=== PATIENT | male | born 1955 | race Caucasian/White ===

== ENCOUNTER → 2019-05-23 | Outpatient (CLI) | payer OTHER | LOC: COL.RAD 12:52 | DX: R80.9 Proteinuria, unspecified (principal) ==

== ENCOUNTER 2019-06-01 18:56 | Emergency (ER) | payer OTHER ==
[~2019-06-01] VITALS: Ht 182.9 cm; Wt 90.9 kg
[2019-06-01 19:05] VITALS: TEMP 98.7
[2019-06-01] MEDS ORDERED: SUDAFED 12 HOU120 MG PO (19:17)
[2019-06-01] MEDS ORDERED: CEPHALEXIN500 M1 PO (20:36)
[2019-06-01 20:42] VITALS: BP 131/83; PULSE 81
== END 2019-06-01 20:44 | disposition home or self-care (01) ==
LOC: COL.ER 18:56
DX: S52.001A Unspecified fracture of upper end of right ulna, initial encounter for closed fracture (principal); Z88.1 Allergy status to other antibiotic agents; W11.XXXA Fall on and from ladder, initial encounter; Y92.009 Unspecified place in unspecified non-institutional (private) residence as the place of occurrence of the external cause

== ENCOUNTER 2022-02-25 03:48 | Emergency (ER) | payer OTHER ==
[~2022-02-25] VITALS: Ht 182.9 cm; Wt 93.2 kg
[~2022-02-25 03:48] MED LIST: CEPHALEXIN500 M1 PO; SUDAFED 12 HOU120 MG PO
[2022-02-25 03:52] VITALS: TEMP 97.7
[2022-02-25 04:20] LABS: BASO # 0.1 K/mm3 (0.0-0.2); BASO % 0.5 % (0.0-2.0); EOS # 0.6 K/mm3 (0.0-0.7); EOS % 5.2 % (0.0-4.0); GRAN # 7.9 K/mm3 (1.4-6.5); GRAN % 70.3 % (42.2-75.2); HEMATOCRIT 42.6 % (42.0-52.0); HEMOGLOBIN 14.7 g/dl (13.5-18.0); LYMPH % 17.4 % (20.0-51.0); MEAN CELL VOLUME 90 fl (80.0-100.0); MEAN CORPUSCULAR HEMOGLOBIN 31 pg (27-31); MEAN CORPUSCULAR HGB CONC 35 g/dl (33.0-37.0); MEAN PLATELET VOLUME 10.6 fl (7.4-10.4); MONO # 0.7 K/mm3 (0.1-0.6); MONO % 6.2 % (1.7-9.3); PLATELET COUNT 233 K/mm3 (130-400); RED BLOOD COUNT 4.76 M/mm3 (4.20-5.60); REDCELL DISTRIBUTION WIDTH-CV 12.6 % (11.5-14.5)
[2022-02-25 04:39] LABS: ALANINE AMINOTRANSFERASE 46 U/L (0-55); ALBUMIN 2.9 gm/dL (3.4-4.8); ALKALINE PHOSPHATASE 32 U/L (40-150); ANION GAP 14 mmol/L (7-16); AST,SGOT 48 U/L (5-34); BILIRUBIN,TOTAL 0.7 mg/dL (0.2-1.2); BLOOD UREA NITROGEN 25 mg/dL (8-26); CALCIUM 9.2 mg/dL (8.4-10.2); CARBON DIOXIDE 23 mmol/L (23-31); CHLORIDE 105 mmol/L (98-107); CREATINE KINASE 137 U/L (30-200); CREATININE, serum 1.17 mg/dL (0.72-1.25); GLUCOSE 130 mg/dL (70-99); POTASSIUM 4.4 mmol/L (3.5-4.5); SODIUM 142 mmol/L (136-145)
[2022-02-25 04:47] LABS: TROPONIN-I < 0.010 ng/mL (0.00-0.033)
[2022-02-25] MEDS ORDERED: MEDROL 4MG DOSPA4 MG PO (06:13)
[2022-02-25] MEDS ORDERED: NORCO 325 MG-51 TAB PO (06:13)
[2022-02-25] MEDS ORDERED: FLEXERIL 1010 MG/TAB PO (06:13)
[2022-02-25 07:04] VITALS: BP 124/82; PULSE 66
== END 2022-02-25 07:04 | disposition home or self-care (01) ==
LOC: COL.ER 03:48
PROVIDERS: Emergency Medicine
DX: S29.012A Strain of muscle and tendon of back wall of thorax, initial encounter (principal); W18.39XA Other fall on same level, initial encounter; Y92.096 Garden or yard of other non-institutional residence as the place of occurrence of the external cause; Y92.59 Other trade areas as the place of occurrence of the external cause; Y99.0 Civilian activity done for income or pay
CPT/HCPCS: J1885; J2060; J7030

== ENCOUNTER 2022-10-10 05:31 | Outpatient (CLI) | payer MEDICARE, OTHER ==
[~2022-10-10] VITALS: Ht 182.9 cm; Wt 93.3 kg
[2022-10-10] VITALS (25 sets, daily range): BP systolic 107–142; BP diastolic 67–94; PULSE 75–88; TEMP 98.7
[~2022-10-10 05:31] MED LIST changes: +FLEXERIL 1010 MG/TAB PO; +MEDROL 4MG DOSPA4 MG PO; +NORCO 325 MG-51 TAB PO
[2022-10-10 07:13] LABS: BASO # 0.1 K/mm3 (0.0-0.2); BASO % 0.8 % (0.0-2.0); EOS # 0.4 K/mm3 (0.0-0.7); EOS % 5.9 % (0.0-4.0); GRAN # 3.4 K/mm3 (1.4-6.5); GRAN % 53.9 % (42.2-75.2); HEMATOCRIT 40.6 % (42.0-52.0); HEMOGLOBIN 13.6 g/dl (13.5-18.0); LYMPH # 1.7 K/mm3 (1.2-3.4); LYMPH % 26.5 % (20.0-51.0); MEAN CELL VOLUME 91 fl (80.0-100.0); MEAN CORPUSCULAR HEMOGLOBIN 31 pg (27-31); MEAN CORPUSCULAR HGB CONC 34 g/dl (33.0-37.0); MEAN PLATELET VOLUME 10.7 fl (7.4-10.4); MONO # 0.8 K/mm3 (0.1-0.6); MONO % 12.1 % (1.7-9.3); PLATELET COUNT 223 K/mm3 (130-400); RED BLOOD COUNT 4.46 M/mm3 (4.20-5.60); REDCELL DISTRIBUTION WIDTH-CV 13.1 % (11.5-14.5)
[2022-10-10 07:21] LABS: PROTHROMBIN TIME 10.9 SECONDS (9.7-12.8)
[2022-10-10 07:24] LABS: PARTIAL THROMBOPLASTIN TIME 37.2 SECONDS (26.0-37.0)
[2022-10-10] MEDS ORDERED: GLUCOPHAGE XR500 M1 PO (08:10)
[2022-10-10] MEDS ORDERED: FARXIGA10 PO (08:12)
[2022-10-10] MEDS ORDERED: ZESTRIL 5MG5 MG PO (08:12)
[2022-10-10] MEDS ORDERED: ZETIA 10MG TAB10 MG PO (08:12)
[2022-10-10] MEDS ORDERED: FLEXERIL 1010 MG/TAB PO (08:13)
[2022-10-10] MEDS ORDERED: LOPID 600M600 MG/TAB PO (08:13)
--- NOTE | 2022-10-10 08:54 | NUR ---
Pt returned from procedure,report from Claire Robertson.Bandaid to left back observed clean,dry,intact.
--- NOTE | 2022-10-10 15:00 | NUR ---
Discharge instructions given to pt.Pt verbalizes understanding.Pt escorted out via wheelchair by this nurse.
== END 2022-10-10 17:04 ==
LOC: COL.RAD 05:31
PROVIDERS: Internal Medicine Nephrology
DX: R80.9 Proteinuria, unspecified (principal)